=== PATIENT | female | born 1945 | race Caucasian/White ===

== ENCOUNTER 2017-07-06 05:53 | Day surgery (SDC) | payer MEDICARE ==
--- NOTE | 2017-07-05 11:10 | HP ---
HISTORY AND PHYSICAL Surgery is scheduled for 07/06/2017. Nichol Hunter is a 71-year-old patient seen with progressive right shoulder pain. After we had treatment options discussed with her, she elected to proceed with right shoulder arthroscopy. Consent regarding the procedure was obtained. Clearances were provided by Dr. Garcia and Dr. Hall. PAST MEDICAL HISTORY: Hypertension and lqu-[id number]-[id number] diabetes. PAST SURGICAL HISTORY: Cholecystectomy, hysterectomy, and pacemaker insertion. DAILY MEDICATIONS: Glyburide-metformin, lisinopril. ALLERGIES: Allergies are none reported. SOCIAL HISTORY: Patient denies current tobacco use. PHYSICAL EXAMINATION: Physical evaluation of right shoulder: Flexion 90 degrees, abduction is 80 degrees, external rotation is 40 degrees with pain and weakness. There is tenderness along the anterolateral acromion and rotator cuff insertion site. Positive impingement sign at 80 degrees. Distal neurovascular exam is intact. Positive drop-arm sign. Right shoulder radiographs revealed a type 2 anterior acromion. There is a large calcification at the tuberosity of rotator cuff insertion site. IMPRESSION: Right shoulder impingement with probable rotator cuff tear and calcific tendinitis. PLAN: Right shoulder arthroscopy with subacromial decompression, probable arthroscopic rotator cuff repair and debridement. Surgery is scheduled for 07/06/2017. MMODL / IJN: [id number] /
[~2017-07-06 05:53] MED LIST: DEXAMETHASONE SOD PHOSPHATE 10 MG/ML 1 ML VIAL IV ONE; HYDROmorphone 0.5 MG/0.5 ML SYRINGE IVP PRN; LACTATED RINGERS 1,000 ML IV SCH; MIDAZOLAM 2 MG/2 ML VIAL IV PRN; ONDANSETRON 4 MG/2 ML VIAL IVP ONE; ceFAZolin 2 GM in SODIUM CHLORIDE 0.9% 100 ML IVPB ONE; ceFAZolin IN SWFI 2 GM/20 ML SYRINGE IVP ONE
[2017-07-06] MEDS ORDERED: LIDOCAINE 1% 20 ML VIAL (10MG/ML) FOR IV START INTRADERMA ONE (07:00)
[2017-07-06 07:17] LABS: Glucose,Whole Blood 205 mg/dL (75-99)
[2017-07-06] MEDS ORDERED: LIDOCAINE 1% INJ 10MG/ML (20 ML MDV) ONE (07:31)
[2017-07-06] MEDS ORDERED: LIDOCAINE 2%-EPI 1:100,000 20 ML VIAL ONE (07:31)
[2017-07-06] MEDS ORDERED: PROPOFOL 10 MG/ML 20 ML VIAL IV ONE (07:31)
[2017-07-06] MEDS ORDERED: MIDAZOLAM 2 MG/2 ML VIAL ONE (07:31)
[2017-07-06] MEDS ORDERED: fentaNYL (PF) 50 MCG/ML 2 ML AMP ONE (07:31)
[2017-07-06] MEDS ORDERED: ROPIVACAINE 5 MG/ML 30 ML VIAL ONE (07:31)
[2017-07-06] MEDS ORDERED: SUCCINYLCHOLINE CHLORIDE VIAL 200 MG/10 ML VIAL IV ONE (07:31)
[2017-07-06] MEDS ORDERED: ePHEDrine SULFATE/0.9% NACL/PF 50 MG/5 ML SYRINGE IV ONE (07:31)
--- NOTE | 2017-07-06 08:58 | P.ONQ ---
Anesthesiology Proc Note - PNB - Peripheral Nerve Block Performed Right Interscalene Indication: Acute Post-Operative Pain, Requested by physician (Dr Bauer) Sedation Type: Sedate with meaningful contact maintained Preparation: Sterile Prep Position: Supine Catheter: None Needle Types: Other (see comment) (Prateek) Needle Size: 50mm (2") Needle Gauge: 20 Technique: Ultrasound Injectate: 0.5% Ropivacaine (see comment for volume) (14cc 0.%5 ropivacaine, 14cc 2% Lidocaine with 1:100,000 epi) Blood Aspirated: No Pain Paresthesia on Injection Noted: No Resistance on Injection: Normal Events: Uneventful and Well Tolerated
[2017-07-06] MEDS ORDERED: LACTATED RINGERS 1,000 ML IV ONE (09:12)
--- NOTE | 2017-07-06 09:25 | P.OP ---
Date of Procedure: 07/06/17 Preoperative Diagnosis: Right shoulder impingement Postoperative Diagnosis: 1. Right shoulder rotator cuff tear 2. Right shoulder impingement 3. Right shoulder superficial anterior/superior labral tears 4. Right shoulder partial long head biceps tendon tear Procedure(s) Performed: 1. Right shoulder arthroscopic rotator cuff repair 2. Right shoulder arthroscopic subacromial decompression 3. Right shoulder arthroscopic debridement labral tear 4. Right shoulder arthroscopic biceps tenotomy Implants: 2-5.5 peek anchors Anesthesia: GETA, regional (Interscalene block) Surgeon: Clive Bauer Cloth Seconds Sorter #1: Marcos Vidales Estimated Blood Loss (ml): 20 Pathology: none sent Condition: stable Disposition: PACU Indications for Procedure: 71-year-old patient seen with progressive right shoulder pain. After treatment options were discussed, she elected to proceed with arthroscopy. Operative Findings: See description of procedure Description of Procedure: Patient underwent a shoulder block by department of anesthesia. The patient was then taken to the operative suite. The patient underwent a general anesthetic by the department of anesthesia. The patient was placed into a lateral position and secured. There was appropriate padding of the bony prominence. Right shoulder was then prepped and draped in normal sterile orthopedic fashion. We placed the extremity in 10 pounds of longitudinal traction. A posterior incision was now made for a posterior working portal site. The trocar and cannula were inserted into the glenohumeral joint. Arthroscopy was initiated. Spinal needle was now inserted anteriorly, to ascertain the anterior working portal site. An incision was now made in that area, a trocar was inserted followed by a probe. Was superficial tearing of the anterior and superior labrum. Partial tearing and hyperemia long head biceps tendon. Grade 1 chondromalacia changes of the glenoid fossa and humeral head with no osteochondral tears. The posterior and inferior labrum were intact. There was a through and through rotator cuff tear visualized from glenohumeral side. I performed an arthroscopic biceps tenotomy. I debrided the superficial labral tears down to stable tissue. The residual labrum was stable. Instruments were now removed from the glenohumeral joint. Utilizing the posterior working portal site, the trocar and cannula were inserted into the subacromial space. Arthroscopy initiated. I made an incision 2 fingerbreadths lateral to the acromion. I introduced my trocar followed by my ArthroCare ablator. I now began ablating thick subacromial bursal tissue, which exposed the undersurface of the anterior acromion. This was diminished subacromial space. There was a very prominent anterior acromion. A motorized bur was introduced and a subacromial decompression was performed. I also excised some osteophytes off the inferior aspect of the distal clavicle. The AC joint was visualized and noted to be moderately arthritic, I did not think enough toward a Reji procedure. I turned my attention to the rotator cuff tendon. I first evaluated a intrasubstance anterior supraspinatus tendon tear. There was approximately 1 cm approaching 1.5 cm. I debrided those margins down to stable tissue. I now noted a distal supraspinatus tendon tear. I debrided those margins down to stable tissue with a motorized shaver. That tear was approximately 1.5-2 cm. It was freely mobile over the footprint. I abraded the footprint with a motorized bur. I now repaired the intrasubstance tear with one single suture with a good [id number] repair. The suture limbs were clipped and the repair was probed and found to be stable. I now inserted for everted mattress sutures along the distal super SMAS tendon tear. I crisscrossed the sutures and inserted 2 lateral anchors compressing the tendon along the footprint very nicely. The residual suture limbs were clipped. We had a good stable repair. Instruments now removed from the portal sites. All portal sites were approximated with nylon suture. Sterile dressings were applied followed by a shoulder immobilizer. Stephen DALLAS assisted with the procedure. The patient was awakened, transferred to a bed, and taken to recovery in stable condition.
[2017-07-06 09:43] VITALS: TEMP 96.8
[2017-07-06 10:51] VITALS: RESP 16
[2017-07-06 11:20] VITALS: BP 116/71; PULSE 77
== END 2017-07-06 11:36 | disposition home or self-care (01) ==
LOC: OR 05:53
PROVIDERS: ATTEND Orthopaedic Surgery
DX: M75.101 Unspecified rotator cuff tear or rupture of right shoulder, not specified as traumatic (principal); M25.811 Other specified joint disorders, right shoulder; S43.401A Unspecified sprain of right shoulder joint, initial encounter; S46.111A Strain of muscle, fascia and tendon of long head of biceps, right arm, initial encounter; X58.XXXA Exposure to other specified factors, initial encounter; M94.211 Chondromalacia, right shoulder; M25.711 Osteophyte, right shoulder; E11.9 Type 2 diabetes mellitus without complications; Z79.84 Long term (current) use of oral hypoglycemic drugs; I10 Essential (primary) hypertension; E78.2 Mixed hyperlipidemia; I49.5 Sick sinus syndrome; K21.9 Gastro-esophageal reflux disease without esophagitis; Z95.0 Presence of cardiac pacemaker; I44.2 Atrioventricular block, complete; Z86.73 Personal history of transient ischemic attack (TIA), and cerebral infarction without residual deficits; Z87.891 Personal history of nicotine dependence; F32.9 Major depressive disorder, single episode, unspecified; F41.9 Anxiety disorder, unspecified; F51.04 Psychophysiologic insomnia; E66.01 Morbid (severe) obesity due to excess calories; Z68.37 Body mass index [BMI] 37.0-37.9, adult; M10.9 Gout, unspecified; Z79.899 Other long term (current) drug therapy; Z79.82 Long term (current) use of aspirin; Z88.5 Allergy status to narcotic agent
CPT/HCPCS: 64415; 29826; 29827; C1713 ×2; J2250; J0330; J1100; J0690; J2405; J2001; J3010; J2795; J2704

== ENCOUNTER → 2018-07-12 | Outpatient (CLI) | payer MEDICARE ==
--- NOTE | 2018-07-14 12:12 | MM ---
Reason for exam: screening (asymptomatic). Last mammogram was performed 6 years ago. History: Family history of breast cancer in paternal aunt at age 50. Physical Findings: A clinical breast exam by your physician is recommended on an annual basis and results should be correlated with mammographic findings. MG Screening Mammo w CAD Bilateral CC and MLO view(s) were taken. Prior study comparison: June 29, 2012, bilateral digital screening mammo w/CAD. July 01, 1999, bilateral screening mammogram, performed at [facility]. There are scattered fibroglandular densities. No suspicious abnormality. Left cardiac device partially obscured the axilla. No significant changes when compared with prior studies. ASSESSMENT: Negative, BI-RAD 1 RECOMMENDATION: Routine screening mammogram of both breasts in 1 year.
== END | disposition home or self-care (01) ==
LOC: RADMAMWWP 15:12
PROVIDERS: ATTEND Family Medicine
DX: Z12.31 Encounter for screening mammogram for malignant neoplasm of breast (principal)
CPT/HCPCS: 77067

== ENCOUNTER 2024-09-03 14:42 | Day surgery (SDC) | payer MEDICARE ==
[2024-09-03] MEDS: SODIUM CHLORIDE 0.9% 1,000 ML IV SCH ×2 (16:16→20:03)
[2024-09-03] MEDS: IV FLUID CONTINUATION 1,000 ML IV ONE (16:25)
[2024-09-03 16:49] LABS: Basophils % (A) 1 %; Eosinophils # (A) 0.3 k/uL (0-0.7); Eosinophils % (A) 4 %; HCT 41.4 % (34.0-46.0); HGB 13.8 gm/dL (11.4-16.0); Lymphocytes % (A) 29 %; MCHC 33.2 g/dL (31.0-37.0); MCV 81.1 fL (80.0-100.0); Mean Platelet Volume 7.4; Monocytes # (A) 0.4 k/uL (0-1.0); Monocytes % (A) 6 %; Neutrophils # (A) 4.2 k/uL (1.3-7.7); Neutrophils % (A) 60 %; Platelet Count 275 k/uL (150-450); RDW 13.5 % (11.5-15.5); WBC 6.9 k/uL (3.8-10.6)
[2024-09-03 17:07] LABS: ALT 17 U/L (4-34); AST 21 U/L (14-36); African American GFR (CKD) 73 (>60 ml/min/1.73 sqM); Albumin 4.3 g/dL (3.5-5.0); Alkaline Phosphatase 93 U/L (38-126); Anion Gap 9 mmol/L; Blood Urea Nitrogen 30 mg/dL (7-17); Calcium 9.6 mg/dL (8.4-10.2); Carbon Dioxide 25 mmol/L (22-30); Chloride 101 mmol/L (98-107); Glucose 140 mg/dL (74-99); Non-African American GFR(CKD) 64 (>60 ml/min/1.73 sqM); Potassium 4.9 mmol/L (3.5-5.1); Sodium 135 mmol/L (137-145); Total Bilirubin 0.5 mg/dL (0.2-1.3); Total Protein 6.9 g/dL (6.3-8.2)
[2024-09-03] MEDS ORDERED: fentaNYL (PF) 50 MCG/ML 2 ML AMP ONE (18:03)
[2024-09-03] MEDS ORDERED: MIDAZOLAM 2 MG/2 ML VIAL ONE (18:03)
[2024-09-03] MEDS ORDERED: PROPOFOL 10 MG/ML 20 ML VIAL IV ONE (18:03)
[2024-09-03] MEDS: ceFAZolin 1 GM in SODIUM CHLORIDE 0.9% IRRIG BTL 250 ML IRRIGATION PRN (18:17)
[2024-09-03] MEDS: ROPIVACAINE 5 MG/ML 30 ML VIAL MISCELLANE ONE (18:40)
[2024-09-03] MEDS: LIDOCAINE 1% INJ 10MG/ML (20 ML MDV) SQ ONE (18:40)
--- NOTE | 2024-09-03 19:19 | P.EPPROC ---
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 Mullins Procedure Dual-chamber pacemaker generator change Cinefluoroscopy of the pocket, generator and the leads Details Patient was brought to the EP lab in a fasting state. Written informed consent was obtained prior to the procedure. Conscious sedation provided. IV antibiotics administered. The original pacemaker generator and the incision was very medial, over the sternum. Therefore fluoroscopy of the generator and the leads was performed. The pacemaker generator was in the middle of the chest over the sternum. A different incision was planned fluoroscopically to avoid the leads sitting caudal to the generator. Local anesthesia administered. A 4 cm incision made in the pectoral area. Subfascial pocket accessed. Chronic atrial lead, Medtronic model #5076, 45 cm in length. P waves 1.5 mV, pacing pins 380 ohms and pacing threshold 0.75 V at 0.4 ms Chronic RV lead, Medtronic model #5076, 52 cm in length. R waves 14 mV, pacing impedance 513 ohms and pacing threshold 0.75 V at 0.4 ms Device landscape gardener. Old adapter generator explanted. New Medtronic generator [place] XT DR implanted. Antibiotic pouch placed. The wound was closed in 3 layers and dressed per protocol patient Toller the procedure well without any acute complication Pacemaker programming, AAIR-DDDR 60-130 bpm
--- NOTE | 2024-09-03 19:20 | P.PRLE ---
RE: Nichol Hunter Dear Toby Gandara underwent dual-chamber pacemaker generator change successfully. She will continue to follow-up with you and at our pacemaker clinic and will continue her cardiac medications Thank you for entrusting me with the care of the patient Warm regards Sincerely Valerio Hall
[2024-09-03] MEDS ORDERED: ACETAMINOPHEN TAB 325 MG TAB PO PRN (19:40)
[2024-09-03] MEDS: REPATHA INJ SCH (20:04)
[2024-09-03] MEDS: METOPROLOL SUCCINATE (ER) 25 MG TAB.ER.24H PO STA (20:20)
[2024-09-03] MEDS: QUEtiapine 100 MG TAB PO SCH (21:30)
[2024-09-03] MEDS: METOPROLOL SUCCINATE (ER) 25 MG TAB.ER.24H PO SCH (21:30)
[2024-09-03 23:13] VITALS: RESP 16
[2024-09-04] MEDS: ACETAMINOPHEN IV (For NPO) 1,000 MG in EMPTY BAG 1 BAG IVPB ONE (00:59)
[2024-09-04 08:15] VITALS: BP 107/68; PULSE 68; TEMP 97.9
[2024-09-04] MEDS: LISINOPRIL-HCTZ 20-25 MG 1 EACH TAB PO SCH (09:44)
[2024-09-04] MEDS: FLUoxetine HCL 20 MG CAP PO SCH (09:45)
--- NOTE | 2024-09-04 16:35 | P.DS ---
Providers Attending physician: Valerio Hall Primary care physician: [facility] Course: Nichol is doing well. No chest discomfort dizziness lightheadedness or palpitations Pacemaker generator site is healed well Discomfort no swelling Blood pressure 111/62 mmHg pulse rate around 70 beats a minute afebrile Breath sounds are clear no rhonchi no crackles Impression Intermittent heart block status post dual-chamber pacemaker many years back by Dr. Vee Battery at [facility] Status post successful pacemaker generator change Pacemaker generator originally implanted in the mid chest area over the sternum Plan Discharge home today and follow-up in the device clinic in 1 week and follow-up with me in about 9 months Plan - Discharge Summary Discharge Rx Participant: No New Discharge Prescriptions: No Action FLUoxetine HCL 40 mg PO QAM Metoprolol Succinate [Toprol XL] 25 mg PO BID QUEtiapine [SEROquel] 100 mg PO HS Lisinopril-Hctz 20-25 mg [Zestoretic 20-25] 1 tab PO DAILY Repatha (Unk) 1 dose INJ DIRECTED Ozempic (Unk) 1 dose INJ FR Discharge Medication List FLUoxetine HCL 40 mg PO QAM 07/01/17 [History] Metoprolol Succinate [Toprol XL] 25 mg PO BID 07/01/17 [History] Lisinopril-Hctz 20-25 mg [Zestoretic 20-25] 1 tab PO DAILY 08/30/24 [History] Ozempic (Unk) 1 dose INJ FR 08/30/24 [History] QUEtiapine [SEROquel] 100 mg PO HS 08/30/24 [History] Repatha (Unk) 1 dose INJ DIRECTED 08/30/24 [History] Follow up Appointment(s)/Referral(s): Valerio Hall MD [STAFF PHYSICIAN] - 09/10/24 3:00 pm (FOLLOW UP APPOINTMENT AT THE DEVICE [facility]INIC [facility]. ) Patient Instructions/Handouts: Pacemaker Generator Change (DC) Discharge Disposition: HOME SELF-CARE
== END 2024-09-04 11:48 | disposition home or self-care (01) ==
LOC: CATHEP 14:42 → 6NMEDSUR 19:25 → CATHEP 09-04 11:48
PROVIDERS: ATTEND Internal Medicine Clinical Cardiac Electrophysiology
DX: I44.2 Atrioventricular block, complete (principal); I10 Essential (primary) hypertension; E78.5 Hyperlipidemia, unspecified; E11.9 Type 2 diabetes mellitus without complications; F17.210 Nicotine dependence, cigarettes, uncomplicated; Z45.010 Encounter for checking and testing of cardiac pacemaker pulse generator [battery]; Z88.5 Allergy status to narcotic agent; Z79.899 Other long term (current) drug therapy
CPT/HCPCS: 33228; 80053; 84443; 85025; C1785; J0690; J2003; J2795